=== PATIENT | male | born 1990 | race Caucasian/White ===

== ENCOUNTER 2020-02-12 13:46 | Inpatient (IN) | payer SELFPAY ==
[~2020-02-12] VITALS: Ht 172.7 cm; Wt 91.4 kg
[2020-02-12] MEDS ORDERED: ONDANSETRON HCL 4MG/2ML INJ IV STA (14:18)
[2020-02-12] MEDS ORDERED: SODIUM CHLORIDE 0.9% 1,000 ML IV ONE (14:18)
[2020-02-12] MEDS ORDERED: FAMOTIDINE 20MG/2ML VIAL IV ONE (14:30)
[2020-02-12 14:44] LABS: CHLORIDE 105 mEq/L (98-107)
[2020-02-12 14:45] LABS: PARTIAL THROMBOPLASTIN TIME 20.2 sec (23.4-31.0); PROTHROMBIN TIME 10.5 sec (9.6-11.0)
[2020-02-12 14:47] LABS: BASOPHILS % 0.4 % (0.0-2.0); EOSINOPHILS % 1.3 % (0.0-5.0); HEMATOCRIT. 41.3 % (42.0-52.0); HEMOGLOBIN. 14.2 g/dL (14.0-18.0); LYMPHOCYTES % 38.8 % (20.0-50.0); MEAN CORPUSCULAR HEMOGLOBIN 31.6 pg (28.0-32.0); MEAN CORPUSCULAR VOLUME 91.8 fL (80.0-94.0); MEAN PLATELET VOLUME 7.9 fl (7.4-10.4); MONOCYTES % 6.3 % (2.0-8.0); NEUTROPHILS % 53.2 % (40.0-76.0); PLATELET 238 x1000/uL (130-400); RED CELL DISTRIBUTION WIDTH 12.9 % (11.6-14.6)
[2020-02-12 14:49] LABS: ETHANOL BLOOD < 10 mg/dL
[2020-02-12] MEDS ORDERED: ACETAMINOPHEN 325MG TABLET PO PRN (17:30)
[2020-02-12] MEDS ORDERED: HYDROCODONE/ACETAMINOPHEN 10/325MG TABLET PO PRN (17:30)
[2020-02-12] MEDS ORDERED: CLONIDINE 0.1MG TABLET PO PRN (17:30)
[2020-02-12] MEDS ORDERED: ONDANSETRON HCL 4MG/2ML INJ IV PRN (17:30)
[2020-02-12] MEDS ORDERED: IPRATROPIUM/ALBUTEROL 0.5-3(2.5)MG/3ML NEB HHN PRN (17:30)
[2020-02-12] MEDS ORDERED: MORPHINE SULFATE 2 MG/ML CPJ (NOT FOR IM USE) IV PRN (17:30)
[2020-02-12] MEDS ORDERED: GUAIFENESIN 200MG/10ML SUGAR FREE UDC PO PRN (17:30)
[2020-02-12] MEDS ORDERED: DIPHENHYDRAMINE 50MG/ML VIAL IV PRN (17:30)
[2020-02-12] MEDS ORDERED: DOCUSATE SODIUM 100MG CAPSULE PO PRN (17:30)
[2020-02-12] MEDS ORDERED: HYDRALAZINE 20MG/ML VIAL IV PRN (17:30)
[2020-02-12] MEDS ORDERED: LORAZEPAM 2MG/ML CPJ IV PRN (17:30)
[2020-02-12] MEDS ORDERED: MAGNESIUM/ALUMINUM HYDROXIDE/SIMETHICONE 30ML UDC PO PRN (17:30)
[2020-02-12 17:47] LABS: CLARITY URINE CLEAR (CLEAR); COLOR URINE YELLOW (YELLOW); KETONES URINE 1+ (NEGATIVE); LEUKOCYTE ESTERASE URINE NEGATIVE (NEGATIVE); NITRITE URINE NEGATIVE (NEGATIVE); OCCULT BLOOD URINE NEGATIVE (NEGATIVE); PROTEIN URINE TRACE (NEGATIVE); SPECIFIC GRAVITY URINE 1.027 (1.005-1.030)
[2020-02-12 18:02] LABS: *AMPHETAMINES SCREEN URINE NEGATIVE (NEGATIVE); *BARBITURATES SCREEN URINE NEGATIVE (NEGATIVE); *COCAINE SCREEN URINE NEGATIVE (NEGATIVE)
[2020-02-12 18:03] LABS: *BENZODIAZEPINES SCREEN URINE NEGATIVE (NEGATIVE); METHADONE URINE SCREEN NEGATIVE (NEGATIVE); OPIATES URINE SCREEN NEGATIVE (NEGATIVE); PHENCYCLIDINE URINE SCREEN NEGATIVE (NEGATIVE)
[2020-02-12 18:09] LABS: CANNABINOID URINE SCREEN NEGATIVE (NEGATIVE)
[2020-02-12 21:10] VITALS: BP 131/74
[2020-02-12 21:20] VITALS: BP 131/74
[2020-02-12] MEDS: SODIUM CHLORIDE 0.45% 1,000 ML IV SCH (22:41)
[2020-02-12] MEDS: SODIUM CHLORIDE 0.9% INJ 3ML FLUSH IVF SCH (22:44)
[2020-02-13 00:26] VITALS: BP 104/52
[2020-02-13 00:47] LABS: CREATINE KINASE 98 IU/L (39-308)
[2020-02-13 00:48] LABS: CREATINE KINASE MB FRACTION < 1.0 ng/mL (0.5-3.6)
[2020-02-13 04:30] VITALS: BP 114/62
[2020-02-13] MEDS: SODIUM CHLORIDE 0.9% INJ 3ML FLUSH IVF SCH ×3 (05:30→21:17)
[2020-02-13 06:18] LABS: BASOPHILS % 0.3 % (0.0-2.0); EOSINOPHILS % 1.7 % (0.0-5.0); HEMATOCRIT. 34.3 % (42.0-52.0); HEMOGLOBIN. 11.9 g/dL (14.0-18.0); LYMPHOCYTES % 34.8 % (20.0-50.0); MEAN CORPUSCULAR HEMOGLOBIN 31.9 pg (28.0-32.0); MEAN CORPUSCULAR VOLUME 92.2 fL (80.0-94.0); MEAN PLATELET VOLUME 8.1 fl (7.4-10.4); MONOCYTES % 8.2 % (2.0-8.0); PLATELET 189 x1000/uL (130-400); RED BLOOD CELL COUNT 3.72 mill/uL (4.7-6.1)
[2020-02-13 06:38] LABS: CHLORIDE 105 mEq/L (98-107)
[2020-02-13 06:50] LABS: CREATINE KINASE 78 IU/L (39-308)
[2020-02-13 06:54] LABS: CREATINE KINASE MB FRACTION < 1.0 ng/mL (0.5-3.6)
[2020-02-13 08:11] VITALS: BP 108/38
[2020-02-13] MEDS: FAMOTIDINE 20MG/2ML VIAL IV SCH (08:58)
[2020-02-13] MEDS ORDERED: ENOXAPARIN 40MG/0.4ML SYR SUBCUT SCH (09:00)
[2020-02-13 11:40] VITALS: BP 108/62
[2020-02-13] MEDS: SODIUM CHLORIDE 0.45% 1,000 ML IV SCH ×2 (12:40→17:22)
[2020-02-13 16:12] VITALS: BP 109/56
[2020-02-13 20:26] VITALS: BP 112/46
[2020-02-13 20:38] LABS: HEMATOCRIT 32.3 % (42.0-52.0); HEMOGLOBIN 11.1 g/dL (14.0-18.0)
[2020-02-14] VITALS: BP 110/46
[2020-02-14 04:00] VITALS: BP 103/61
[2020-02-14] MEDS: SODIUM CHLORIDE 0.9% INJ 3ML FLUSH IVF SCH ×3 (05:25→22:52)
[2020-02-14] MEDS: SODIUM CHLORIDE 0.45% 1,000 ML IV SCH (05:26)
[2020-02-14 06:06] LABS: BASOPHILS % 0.5 % (0.0-2.0); HEMATOCRIT. 29.3 % (42.0-52.0); HEMOGLOBIN. 10.3 g/dL (14.0-18.0); LYMPHOCYTES % 59.1 % (20.0-50.0); MEAN CORPUSCULAR HEMOGLOBIN 32.2 pg (28.0-32.0); MEAN CORPUSCULAR VOLUME 91.3 fL (80.0-94.0); MONOCYTES % 6.6 % (2.0-8.0); NEUTROPHILS % 30.8 % (40.0-76.0); PLATELET 166 x1000/uL (130-400); RED BLOOD CELL COUNT 3.21 mill/uL (4.7-6.1); RED CELL DISTRIBUTION WIDTH 12.7 % (11.6-14.6)
[2020-02-14 06:50] LABS: CHLORIDE 107 mEq/L (98-107)
[2020-02-14 07:59] VITALS: BP 102/60
[2020-02-14] MEDS: FAMOTIDINE 20MG/2ML VIAL IV SCH (08:45)
[2020-02-14] MEDS: PANTOPRAZOLE SODIUM 40 MG/VIAL IV SCH (11:50)
[2020-02-14 12:09] VITALS: BP 104/48
[2020-02-14 15:16] LABS: HEMATOCRIT 30.3 % (42.0-52.0); HEMOGLOBIN 10.6 g/dL (14.0-18.0)
[2020-02-14 15:28] VITALS: BP 105/49
[2020-02-14 22:46] LABS: HEMATOCRIT 31.2 % (42.0-52.0); HEMOGLOBIN 10.9 g/dL (14.0-18.0)
[2020-02-15 04:00] VITALS: BP 105/42
[2020-02-15] MEDS: SODIUM CHLORIDE 0.45% 1,000 ML IV SCH ×2 (04:43→14:44)
[2020-02-15] MEDS: SODIUM CHLORIDE 0.9% INJ 3ML FLUSH IVF SCH ×2 (05:43→14:44)
[2020-02-15 05:49] LABS: BASOPHILS % 0.3 % (0.0-2.0); EOSINOPHILS % 2.8 % (0.0-5.0); HEMATOCRIT. 30.4 % (42.0-52.0); HEMOGLOBIN. 10.6 g/dL (14.0-18.0); LYMPHOCYTES % 45.7 % (20.0-50.0); MEAN CORPUSCULAR HEMOGLOBIN 31.9 pg (28.0-32.0); MEAN CORPUSCULAR VOLUME 91.7 fL (80.0-94.0); MEAN PLATELET VOLUME 8.2 fl (7.4-10.4); MONOCYTES % 7.2 % (2.0-8.0); PLATELET 170 x1000/uL (130-400); RED BLOOD CELL COUNT 3.32 mill/uL (4.7-6.1)
[2020-02-15 06:39] LABS: CHLORIDE 108 mEq/L (98-107)
[2020-02-15 08:00] VITALS: BP 117/42
[2020-02-15] MEDS: PANTOPRAZOLE SODIUM 40 MG/VIAL IV SCH (08:49)
[2020-02-15 12:00] VITALS: BP 113/43
[2020-02-15] MEDS ORDERED: METOCLOPRAMIDE HCL 10MG/2ML VIAL IV PRN (13:30)
[2020-02-15 16:00] VITALS: BP 120/61
[2020-02-15] MEDS ORDERED: METOCLOPRAMIDE HCL 10MG/2ML VIAL IV SCH (17:20)
[2020-02-15] MEDS ORDERED: SUCRALFATE 1 G/10 ML UDC PO SCH (17:20)
[2020-02-15 18:31] VITALS: BP 120/61
[2020-02-15] MEDS ORDERED: PANTOPRAZOLE SODIUM 40 MG/VIAL IV SCH (21:00)
== END 2020-02-15 19:00 | disposition home or self-care (01) | DRG 242 ==
LOC: ER 13:55 → 6WST 16:48 → EDBEDREQTM 16:52 → EDBEDREQ 16:52 → ENRESERV 20:40
PROVIDERS: ADMIT Internal Medicine; ATTEND Internal Medicine
PROC: 0DB78ZX Excision of Stomach, Pylorus, Via Natural or Artificial Opening Endoscopic, Diagnostic (ICD-10-PCS; principal; 2020-02-15)
DX: K22.11 Ulcer of esophagus with bleeding (principal); D64.9 Anemia, unspecified; K29.60 Other gastritis without bleeding; R55 Syncope and collapse
CPT/HCPCS: 36415; 71045; 80048; 80053; 80305; 80320; 81003; 82270; 82550; 82553; 83880; 84484; 85014; 85018; 85025; 93005; 93970; 96374; 99285; C9113; J1650; J2405; J2765; J3490; J7030; G0480